=== PATIENT | male | born 1985 | race Caucasian/White ===

== ENCOUNTER 2020-08-17 04:47 | Emergency (ER) | payer OTHER | END 2020-08-17 06:37 | disposition home or self-care (01) | LOC: EDH 04:47 | DX: R10.9 Unspecified abdominal pain (principal); R11.2 Nausea with vomiting, unspecified; R19.7 Diarrhea, unspecified; R05 Cough; Z20.822 Contact with and (suspected) exposure to COVID-19; Z72.0 Tobacco use | CPT/HCPCS: 87426; 99283; U0003 ==